=== PATIENT | male | born 1955 | race Caucasian/White ===

== ENCOUNTER → 2018-04-25 | Outpatient (CLI) | payer OTHER ==
--- NOTE | 2018-04-25 11:27 | RAD ---
EXAM DESCRIPTION: Knee,Right 2 or More Views CLINICAL HISTORY: PAIN IN RIGHT KNEE COMPARISON: None. TECHNIQUE: 4 views FINDINGS: I see no bone joint or soft tissue abnormality. IMPRESSION: Normal right knee. Electronically signed by: Tj Neal MD 04/25/2018 11:26 AM CDT
--- NOTE | 2018-04-25 11:28 | RAD ---
EXAM DESCRIPTION: Pelvis CLINICAL HISTORY: PAIN IN RIGHT HIP COMPARISON: None. TECHNIQUE: AP pelvis FINDINGS: I see no bone joint or soft tissue normality. IMPRESSION: Normal pelvis Electronically signed by: Tj Neal MD 04/25/2018 11:27 AM CDT
== END ==
LOC: RAD 08:03
PROVIDERS: ATTEND Orthopaedic Surgery
DX: M25.561 Pain in right knee (principal); M25.551 Pain in right hip

== ENCOUNTER → 2020-06-24 | Outpatient (CLI) | payer BC, OTHER ==
--- NOTE | 2020-06-24 15:57 | MRI ---
EXAM DESCRIPTION: Lumbar Spine w/o Contrast : Magnetic Resonance Imaging. CLINICAL HISTORY: LOW BACK PAIN COMPARISON: LUMBAR TECHNIQUE: Multiplanar, multiple standard sequences, non contrast MRI, lumbar spine. FINDINGS: L5-S1: The disc is well visualized on axial T2 series 501, image 3. Disc desiccation minimal posterior bulge. Facet joints and posterior flavum ligaments (canal elements) are unremarkable. Canal and right foramen are patent with mild narrowing of the left foramen. L4-L5: Normal signal in the disc with disc space preserved. Hypertrophic changes in the canal elements more on the right. AP Canal diameter 11 mm. Increased fatty tissue posterior epidural space. Mild foraminal narrowing by disc bulge into the left foramen, but right disc bulge with spur abutting the exiting L4 nerve. L3-L4: Disc desiccation with disc space maintained. Anterior margin hyperintense T2 annular fissure in the disc. Anterior mild to moderate endplate reactive changes. Active Schmorl's node superior L4 endplate. Minimal hypertrophic changes canal elements. Mild bilateral foraminal narrowing. L2-L3: Minimal Disc desiccation with reactive Schmorl's node superior L3 endplate. Disc space maintained. Minimal concavities, superior and inferior endplates. Minimal hypertrophy of the canal elements. Canal is patent. The lateral foramina are patent. L1-L2: Disc desiccation with anterior moderate endplate reactive changes. Large active Schmorl's node inferior L1 endplate. Minimal concavity superior L2 endplate. Disc space maintained. No disc bulging. Canal elements unremarkable with canal and foramina patent. L5-S1: Disc space maintained with normal signal in the disc and no posterior bulging. Irregularity and concavities in both endplates. Canal elements unremarkable. Canal and foramina are patent. Conus terminates at this level. Anatomic alignment. Paravertebral soft tissues negative. Distal cord normal signal and caliber. Otherwise normal marrow signal in the remaining vertebral bodies and the posterior elements. Vertebral bodies are not compressed at any level. IMPRESSION: 1. Minimal desiccation of disc and minimal bulging. No herniation. Multiple levels of endplate changes and active and inactive Schmorl's nodes. These can be a source of back pain. 2. Moderate central canal narrowing at L4-L5. Spondylosis on the right with disc spur complex encroaching on the foramen and abutting the exiting right L4 nerve. 3. Anterior Schmorl's node in the L3-L4 disc can also be a source of back pain. 4. Please refer to the above FINDINGS for discussion the results at other levels. Electronically signed by: Ralf Velazquez MD 06/24/2020 3:55 PM CDT
== END ==
LOC: MRI 08:01
PROVIDERS: ATTEND Family Medicine
DX: M51.36 Other intervertebral disc degeneration, lumbar region (principal); M51.86 Other intervertebral disc disorders, lumbar region; M51.46 Schmorl's nodes, lumbar region; M47.896 Other spondylosis, lumbar region; M51.87 Other intervertebral disc disorders, lumbosacral region; M51.37 Other intervertebral disc degeneration, lumbosacral region